=== PATIENT | male | born 1955 | race Caucasian/White ===

== ENCOUNTER 2018-01-31 07:30 | Emergency (ER) | payer MEDICARE, MEDICAID ==
[~2018-01-31] VITALS: Ht 175.3 cm; Wt 65.8 kg
[2018-01-31] MEDS ORDERED: [UNRECOGNIZED DRUG - REMARK] (07:42)
[2018-01-31] MEDS ORDERED: [UNRECOGNIZED DRUG - REMARK] (07:42)
[2018-01-31] MEDS ORDERED: [UNRECOGNIZED DRUG - REMARK] (07:43)
[2018-01-31] MEDS ORDERED: [UNRECOGNIZED DRUG - REMARK] (07:43)
--- NOTE | 2018-01-31 07:53 | NUR ---
PT REFUSED ANY TESTS, DECIDED TO LEAVE AFTER MD IVAN. PT AMBULATED W/O DIFF/TOOK ALL BELONGINGS . PT ELOPED.
== END 2018-01-31 07:57 | disposition left against medical advice (07) ==
LOC: ER 07:30
DX: F31.9 Bipolar disorder, unspecified (principal); F29 Unspecified psychosis not due to a substance or known physiological condition
CPT/HCPCS: 99284; A4663

== ENCOUNTER 2018-02-05 09:48 | Emergency (ER) | payer MEDICARE, MEDICAID ==
[~2018-02-05] VITALS: Ht 175.3 cm; Wt 63.5 kg
[~2018-02-05 09:48] MED LIST: [UNRECOGNIZED DRUG - REMARK]; [UNRECOGNIZED DRUG - REMARK]; [UNRECOGNIZED DRUG - REMARK]; [UNRECOGNIZED DRUG - REMARK]
[2018-02-05 10:13] LABS: BASOPHILS # (AUTO) 0.1 K/uL (0.0-8.0); BASOPHILS % (AUTO) 0.9 % (0.0-2.0); EOSINOPHILS # (AUTO) 0.2 K/uL (0.0-0.7); EOSINOPHILS % (AUTO) 3.2 % (0.0-7.0); HEMATOCRIT 37.6 % (36.7-47.1); HEMOGLOBIN 12.7 g/dL (12.5-16.3); LYMPHOCYTES # (AUTO) 1.5 K/uL (20.0-40.0); LYMPHOCYTES % (AUTO) 23.3 % (20.5-51.5); MEAN CORPUSCULAR HEMOGLOBIN 31.2 uug (23.8-33.4); MEAN CORPUSCULAR HGB CONC 34 g/dL (32.5-36.3); MEAN CORPUSCULAR VOLUME 92.6 fL (73.0-96.2); MONOCYTES # (AUTO) 0.4 K/uL (2.0-10.0); MONOCYTES % (AUTO) 6.6 % (0.0-11.0); NEUTROPHILS # (AUTO) 4.3 K/uL (1.8-8.9); PLATELET COUNT (AUTO) 208 K/uL (152-348); RED BLOOD CELL COUNT(AUTO) 4.07 MIL/uL (4.06-5.63); WHITE BLOOD COUNT (AUTO) 6.5 K/uL (3.6-10.2)
--- NOTE | 2018-02-05 10:19 | NUR ---
[facility] provided for pt per request
[2018-02-05 10:22] LABS: CARBON DIOXIDE 28 mmol/L (21-32); CHLORIDE 108 mmol/L (98-107); CREATININE 0.8 mg/dL (0.6-1.3); GLUCOSE 152 mg/dL (74-106); POTASSIUM 3.5 mmol/L (3.5-5.1); UREA NITROGEN, BLOOD 28 mg/dL (7-18)
[2018-02-05] MEDS ORDERED: MIRT15TA7 PO (10:23)
[2018-02-05] MEDS ORDERED: MELO-105 PO (10:23)
[2018-02-05] MEDS ORDERED: METO50TA16 PO (10:23)
[2018-02-05] MEDS ORDERED: DIVA250T4 PO (10:23)
[2018-02-05] MEDS ORDERED: IBUP-1955 PO (10:23)
[2018-02-05] MEDS ORDERED: BENZ1TAB7 PO (10:23)
[2018-02-05] MEDS ORDERED: DOCU-141 PO (10:23)
[2018-02-05] MEDS ORDERED: ARIP10TA9 PO (10:23)
[2018-02-05] MEDS ORDERED: OLME20TA13 PO (10:23)
[2018-02-05 10:28] LABS: ALANINE AMINOTRANSFERASE 17 U/L (16-63); ALKALINE PHOSPHATASE 66 U/L (50-136); ASPARTATE AMINOTRANSFERASE 17 U/L (15-37); BILIRUBIN,DIRECT 0.1 mg/dL (0.0-0.2); BILIRUBIN,TOTAL 0.3 mg/dL (0.2-1.0); TOTAL PROTEIN, SERUM 6.6 g/dL (6.4-8.2)
[2018-02-05 10:31] LABS: ACETAMINOPHEN < 2.0 ug/mL (10-30)
[2018-02-05 10:32] LABS: ETHANOL < 3 MG/DL (0-0)
[2018-02-05 10:39] LABS: *BILIRUBIN,URIN NEGATIVE (NEGATIVE); *BLOOD, URINE NEGATIVE (NEGATIVE); *CLARITY,URINE CLEAR (CLEAR); *COLOR,URINE YELLOW (YELLOW); *KETONES,URINE NEGATIVE (NEGATIVE); *PROTEIN,URINE NEGATIVE (NEGATIVE); LEUKOCYTE ESTERASE ,URINE NEGATIVE (NEGATIVE); NITRITE, URINE NEGATIVE (NEGATIVE); UGLUCOSE NEGATIVE (NEGATIVE)
[2018-02-05 10:41] LABS: BACTERIA,URINE FEW /HPF (NONE SEEN); RBC,URINE 0-3 /HPF (0-3); SQUAMOUS EPITHELIAL CELL,UR FEW /HPF (NONE SEEN)
[2018-02-05 10:42] LABS: CALCIUM OXALATE CRYSTALS,UR MODERATE /HPF (NONE SEEN)
[2018-02-05 10:49] LABS: *AMPHETAMINE, URINE NEGATIVE (NEGATIVE); *BARBITURATE, URINE NEGATIVE (NEGATIVE); *CANNABINOID, URINE NEGATIVE (NEGATIVE); *COCCAINE, URINE NEGATIVE (NEGATIVE); *OPIATE, URINE POSITIVE (NEGATIVE); *PHENCYCLIDINE SCREEN,URINE NEGATIVE (NEGATIVE)
--- NOTE | 2018-02-05 10:58 | NUR ---
PT IS MEDICALLY CLEARED BY DR DENSON.
--- NOTE | 2018-02-05 11:14 | NUR ---
yair andujar at bedside.
[2018-02-05] MEDS ORDERED: MELOXICAM 7.5 MG TABLET PO SCH (12:15)
[2018-02-05] MEDS ORDERED: METOPROLOL TARTRATE 50 MG TABLET PO SCH (12:15)
[2018-02-05] MEDS ORDERED: VALSARTAN 80 MG TABLET PO ONE (12:15)
[2018-02-05] MEDS ORDERED: DOCUSATE SODIUM 100 MG CAPSULE PO SCH (12:15)
[2018-02-05] MEDS ORDERED: BENZTROPINE MESYLATE 1 MG TABLET PO SCH (12:15)
--- NOTE | 2018-02-05 12:50 | NUR ---
Received report from GALLITO Lewis. Per report pt eloped from ER prior to my arrival. MARIAN is aware.
[2018-02-05] MEDS ORDERED: IBUPROFEN 600 MG TABLET PO SCH (13:00)
== END 2018-02-05 12:50 | disposition left against medical advice (07) ==
LOC: ER 09:48
DX: Z04.6 Encounter for general psychiatric examination, requested by authority (principal); F31.9 Bipolar disorder, unspecified; I10 Essential (primary) hypertension; F17.200 Nicotine dependence, unspecified, uncomplicated; Z88.8 Allergy status to other drugs, medicaments and biological substances
CPT/HCPCS: 36415; 80048; 80076; 80307; 81001; 85025; 87086; 99284; A4663; G0480 ×2; G0481

== ENCOUNTER 2019-01-11 05:13 | Emergency (ER) | payer MEDICAID, MEDICARE ==
[~2019-01-11] VITALS: Ht 175.3 cm; Wt 67.6 kg
[~2019-01-11 05:13] MED LIST changes: +ARIP10TA9 PO; +BENZ1TAB7 PO; +DIVA250T4 PO; +DOCU-141 PO; +IBUP-1955 PO; +MELO-105 PO; +METO50TA16 PO; +MIRT15TA7 PO; +OLME20TA13 PO
--- NOTE | 2019-01-11 05:22 | NUR ---
Pt not in waiting room.
--- NOTE | 2019-01-11 05:45 | NUR ---
PATIENT WAS MSE BY DR CORONEL IN ROOM 03A.
[2019-01-11 06:02] LABS: BASOPHILS # (AUTO) 0.1 K/uL (0.0-8.0); BASOPHILS % (AUTO) 0.8 % (0.0-2.0); EOSINOPHILS # (AUTO) 0.2 K/uL (0.0-0.7); EOSINOPHILS % (AUTO) 2.2 % (0.0-7.0); HEMATOCRIT 37.4 % (36.7-47.1); HEMOGLOBIN 12.8 g/dL (12.5-16.3); LYMPHOCYTES # (AUTO) 1.5 K/uL (20.0-40.0); LYMPHOCYTES % (AUTO) 21.9 % (20.5-51.5); MEAN CORPUSCULAR HEMOGLOBIN 31.1 uug (23.8-33.4); MEAN CORPUSCULAR HGB CONC 34 g/dL (32.5-36.3); MEAN CORPUSCULAR VOLUME 90.5 fL (73.0-96.2); MONOCYTES # (AUTO) 0.5 K/uL (2.0-10.0); MONOCYTES % (AUTO) 7.4 % (0.0-11.0); NEUTROPHILS # (AUTO) 4.6 K/uL (1.8-8.9); NEUTROPHILS % (AUTO) 67.7 % (38.5-71.5); PLATELET COUNT (AUTO) 241 K/uL (152-348); RED BLOOD CELL COUNT(AUTO) 4.13 MIL/uL (4.06-5.63); WHITE BLOOD COUNT (AUTO) 6.8 K/uL (3.6-10.2)
--- NOTE | 2019-01-11 06:06 | NUR ---
Pt provided urine sample, sent to lab.
[2019-01-11 06:07] LABS: CARBON DIOXIDE 31 mmol/L (21-32); CHLORIDE 106 mmol/L (98-107); CREATININE 0.9 mg/dL (0.6-1.3); GLUCOSE 86 mg/dL (74-106); POTASSIUM 3.9 mmol/L (3.5-5.1); UREA NITROGEN, BLOOD 26 mg/dL (7-18)
[2019-01-11 06:12] LABS: ALANINE AMINOTRANSFERASE 9 U/L (16-63); ALKALINE PHOSPHATASE 67 U/L (50-136); ASPARTATE AMINOTRANSFERASE 12 U/L (15-37); BILIRUBIN,DIRECT 0.1 mg/dL (0.0-0.2); BILIRUBIN,TOTAL 0.3 mg/dL (0.2-1.0)
[2019-01-11 06:15] LABS: ACETAMINOPHEN < 2.0 ug/mL (10-30)
[2019-01-11 06:28] LABS: ETHANOL 4 MG/DL (0-0)
[2019-01-11 06:44] LABS: *AMPHETAMINE, URINE NEGATIVE (NEGATIVE); *BARBITURATE, URINE NEGATIVE (NEGATIVE); *BILIRUBIN,URIN NEGATIVE (NEGATIVE); *BLOOD, URINE NEGATIVE (NEGATIVE); *CANNABINOID, URINE NEGATIVE (NEGATIVE); *CLARITY,URINE CLEAR (CLEAR); *COCCAINE, URINE NEGATIVE (NEGATIVE); *COLOR,URINE YELLOW (YELLOW); *KETONES,URINE NEGATIVE (NEGATIVE); *OPIATE, URINE NEGATIVE (NEGATIVE); *PHENCYCLIDINE SCREEN,URINE NEGATIVE (NEGATIVE); *UROBILINOGEN,URINE 0.2 E.U./dl (NORMAL); LEUKOCYTE ESTERASE ,URINE NEGATIVE (NEGATIVE); NITRITE, URINE NEGATIVE (NEGATIVE); UGLUCOSE NEGATIVE (NEGATIVE)
--- NOTE | 2019-01-11 08:03 | NUR ---
PT EATING HOSPITAL BF WITH GOOD APETITE.
--- NOTE | 2019-01-11 08:11 | NUR ---
CALLED ANGY FOR PSYCH EVAL.LEFT A MESSAGE.
--- NOTE | 2019-01-11 09:19 | NUR ---
ANGY AGOSTO HERE FOR PSYCH EVAL.
--- NOTE | 2019-01-11 09:45 | NUR ---
Patient discharged to home in stable conditon. Written and verbal after care instructions given. Patient verbalizes understanding of instructions.PT WALKS IN STEADY GAIT. TAP CAR PROVIDED BUS TRIP TO GO BACK TO HIS RESIDENCE. PT DENEIS ANY COMPLAIN AT THIS POINT.
[2019-01-11 09:47] VITALS: BP 131/77
== END 2019-01-11 09:48 | disposition home or self-care (01) ==
LOC: ER 05:16
DX: F31.9 Bipolar disorder, unspecified (principal); F20.9 Schizophrenia, unspecified; F17.210 Nicotine dependence, cigarettes, uncomplicated; Z88.8 Allergy status to other drugs, medicaments and biological substances; Z79.1 Long term (current) use of non-steroidal anti-inflammatories (NSAID); Z79.899 Other long term (current) drug therapy
CPT/HCPCS: 36415; 80048; 80076; 80307; 81001; 85025; 99284; G0480 ×2; G0481; A4663

== ENCOUNTER 2019-01-15 12:50 | Inpatient (IN) | payer MEDICARE ==
[~2019-01-15] VITALS: Ht 175.3 cm; Wt 80.3 kg
[2019-01-15 13:27] LABS: *BILIRUBIN,URIN 1+ (NEGATIVE); *BLOOD, URINE NEGATIVE (NEGATIVE); *CLARITY,URINE CLEAR (CLEAR); *COLOR,URINE YELLOW (YELLOW); *KETONES,URINE TRACE (NEGATIVE); *UROBILINOGEN,URINE 0.2 E.U./dl (NORMAL); BASOPHILS # (AUTO) 0.1 K/uL (0.0-8.0); BASOPHILS % (AUTO) 0.9 % (0.0-2.0); EOSINOPHILS # (AUTO) 0.3 K/uL (0.0-0.7); EOSINOPHILS % (AUTO) 3.7 % (0.0-7.0); HEMATOCRIT 41.8 % (36.7-47.1); HEMOGLOBIN 13.7 g/dL (12.5-16.3); LEUKOCYTE ESTERASE ,URINE NEGATIVE (NEGATIVE); LYMPHOCYTES # (AUTO) 1.6 K/uL (20.0-40.0); LYMPHOCYTES % (AUTO) 22.1 % (20.5-51.5); MEAN CORPUSCULAR HEMOGLOBIN 30.7 uug (23.8-33.4); MEAN CORPUSCULAR HGB CONC 33 g/dL (32.5-36.3); MEAN CORPUSCULAR VOLUME 94.1 fL (73.0-96.2); MONOCYTES # (AUTO) 0.5 K/uL (2.0-10.0); MONOCYTES % (AUTO) 7.1 % (0.0-11.0); NEUTROPHILS # (AUTO) 4.8 K/uL (1.8-8.9); NEUTROPHILS % (AUTO) 66.2 % (38.5-71.5); NITRITE, URINE NEGATIVE (NEGATIVE); PH,URINE 5.5 (5.0-8.0); PLATELET COUNT (AUTO) 249 K/uL (152-348); RED BLOOD CELL COUNT(AUTO) 4.45 MIL/uL (4.06-5.63); UGLUCOSE NEGATIVE (NEGATIVE); WHITE BLOOD COUNT (AUTO) 7.3 K/uL (3.6-10.2)
[2019-01-15 13:33] LABS: BACTERIA,URINE FEW /HPF (NONE SEEN); RBC,URINE NONE SEEN /HPF (0-3); SQUAMOUS EPITHELIAL CELL,UR FEW /HPF (NONE SEEN); WBC,URINE NONE SEEN /HPF (0-3)
[2019-01-15 13:34] LABS: *AMPHETAMINE, URINE NEGATIVE (NEGATIVE); *BARBITURATE, URINE NEGATIVE (NEGATIVE); *CANNABINOID, URINE NEGATIVE (NEGATIVE); *COCCAINE, URINE NEGATIVE (NEGATIVE); *OPIATE, URINE NEGATIVE (NEGATIVE); *PHENCYCLIDINE SCREEN,URINE NEGATIVE (NEGATIVE); MUCUS,URINE FEW /LPF (0-FEW)
[2019-01-15 13:35] LABS: CARBON DIOXIDE 30 mmol/L (21-32); CHLORIDE 106 mmol/L (98-107); CREATININE 0.8 mg/dL (0.6-1.3); GLUCOSE 97 mg/dL (74-106); POTASSIUM 3.9 mmol/L (3.5-5.1); UREA NITROGEN, BLOOD 27 mg/dL (7-18)
[2019-01-15 13:39] LABS: ETHANOL < 3 MG/DL (0-0)
[2019-01-15 13:41] LABS: ACETAMINOPHEN < 2.0 ug/mL (10-30); ALANINE AMINOTRANSFERASE 9 U/L (16-63); ALKALINE PHOSPHATASE 71 U/L (50-136); ASPARTATE AMINOTRANSFERASE 12 U/L (15-37); BILIRUBIN,DIRECT 0.1 mg/dL (0.0-0.2); BILIRUBIN,TOTAL 0.3 mg/dL (0.2-1.0); TOTAL PROTEIN, SERUM 7.8 g/dL (6.4-8.2); VALPROIC ACID 12 ug/mL (50-100)
[2019-01-15 20:00] VITALS: BP 118/61
[2019-01-15] MEDS ORDERED: BLOOD SUGAR DIAGNOSTIC 1 EACH STRIP VI ONE (20:00)
[2019-01-15] MEDS ORDERED: TEMAZEPAM 7.5 MG CAPSULE PO PRN (20:00)
[2019-01-15] MEDS ORDERED: MAG HYDROX/AL HYDROX/SIMETH 30 ML LIQUID UDC PO PRN (20:00)
[2019-01-15] MEDS ORDERED: ACETAMINOPHEN 325 MG TABLET PO PRN (20:00)
[2019-01-15] MEDS ORDERED: MAGNESIUM HYDROXIDE 30 ML LIQUID UDC PO PRN (20:00)
[2019-01-15] MEDS ORDERED: NICOTINE 21 MG/24HR PATCH TD SCH (20:45)
[2019-01-16 07:30] VITALS: BP 144/78
[2019-01-16] MEDS: BENZTROPINE MESYLATE 1 MG TABLET PO SCH ×2 (09:44→17:19)
[2019-01-16] MEDS: DIVALPROEX 250 MG TABLET.DR PO SCH ×3 (09:44→17:20)
[2019-01-16] MEDS: NICOTINE 21 MG/24HR PATCH TD SCH (09:44)
[2019-01-16] MEDS: ARIPIPRAZOLE 10 MG TABLET PO SCH (09:44)
[2019-01-16] MEDS: IBUPROFEN 600 MG TABLET PO PRN (15:38)
[2019-01-16 16:00] VITALS: BP 136/88
[2019-01-16] MEDS: METOPROLOL TARTRATE 50 MG TABLET PO SCH (17:20)
[2019-01-16 20:37] VITALS: BP 146/76
[2019-01-16] MEDS: MIRTAZAPINE 15 MG TABLET PO SCH (20:50)
[2019-01-17] MEDS: LORAZEPAM 0.5 MG TABLET PO PRN (08:23)
[2019-01-17] MEDS: DOCUSATE SODIUM 100 MG CAPSULE PO SCH (08:57)
[2019-01-17] MEDS: BENZTROPINE MESYLATE 1 MG TABLET PO SCH ×2 (08:57→16:51)
[2019-01-17] MEDS: LOSARTAN POTASSIUM 50 MG TABLET PO SCH (08:57)
[2019-01-17] MEDS: ARIPIPRAZOLE 10 MG TABLET PO SCH (08:57)
[2019-01-17] MEDS: DIVALPROEX 250 MG TABLET.DR PO SCH ×3 (08:57→16:51)
[2019-01-17] MEDS: METOPROLOL TARTRATE 50 MG TABLET PO SCH ×2 (08:57→16:51)
[2019-01-17] MEDS: MELOXICAM 7.5 MG TABLET PO SCH (08:58)
[2019-01-17] MEDS: NICOTINE 21 MG/24HR PATCH TD SCH (08:58)
[2019-01-17] MEDS: MIRTAZAPINE 15 MG TABLET PO SCH (20:09)
[2019-01-18] MEDS: LORAZEPAM 0.5 MG TABLET PO PRN ×2 (04:50→12:33)
[2019-01-18] MEDS: ARIPIPRAZOLE 10 MG TABLET PO SCH (08:40)
[2019-01-18] MEDS: DIVALPROEX 250 MG TABLET.DR PO SCH ×3 (08:40→16:11)
[2019-01-18] MEDS: MELOXICAM 7.5 MG TABLET PO SCH (08:40)
[2019-01-18] MEDS: LOSARTAN POTASSIUM 50 MG TABLET PO SCH (08:40)
[2019-01-18] MEDS: DOCUSATE SODIUM 100 MG CAPSULE PO SCH (08:40)
[2019-01-18] MEDS: BENZTROPINE MESYLATE 1 MG TABLET PO SCH ×2 (08:40→16:11)
[2019-01-18] MEDS: METOPROLOL TARTRATE 50 MG TABLET PO SCH ×2 (08:41→16:12)
[2019-01-18] MEDS: NICOTINE 21 MG/24HR PATCH TD SCH (08:41)
[2019-01-18 16:41] VITALS: BP 160/93
[2019-01-18] MEDS: MIRTAZAPINE 15 MG TABLET PO SCH (20:13)
[2019-01-18] MEDS: IBUPROFEN 600 MG TABLET PO PRN (20:13)
[2019-01-19 07:30] VITALS: BP 157/109
[2019-01-19] MEDS: LORAZEPAM 0.5 MG TABLET PO PRN ×2 (08:56→14:14)
[2019-01-19] MEDS: NICOTINE 21 MG/24HR PATCH TD SCH (09:00)
[2019-01-19] MEDS: ARIPIPRAZOLE 10 MG TABLET PO SCH (09:04)
[2019-01-19] MEDS: IBUPROFEN 600 MG TABLET PO PRN ×2 (09:04→14:14)
[2019-01-19] MEDS: MELOXICAM 7.5 MG TABLET PO SCH (09:04)
[2019-01-19] MEDS: BENZTROPINE MESYLATE 1 MG TABLET PO SCH ×2 (09:04→16:36)
[2019-01-19] MEDS: DOCUSATE SODIUM 100 MG CAPSULE PO SCH (09:04)
[2019-01-19] MEDS: DIVALPROEX 250 MG TABLET.DR PO SCH ×3 (09:04→16:36)
[2019-01-19] MEDS: LOSARTAN POTASSIUM 50 MG TABLET PO SCH (09:07)
[2019-01-19] MEDS: METOPROLOL TARTRATE 50 MG TABLET PO SCH ×2 (09:08→16:37)
[2019-01-19] MEDS: MIRTAZAPINE 15 MG TABLET PO SCH (20:05)
[2019-01-20] MEDS: DOCUSATE SODIUM 100 MG CAPSULE PO SCH (08:36)
[2019-01-20] MEDS: MELOXICAM 7.5 MG TABLET PO SCH (08:36)
[2019-01-20] MEDS: DIVALPROEX 250 MG TABLET.DR PO SCH ×3 (08:36→16:54)
[2019-01-20] MEDS: ARIPIPRAZOLE 10 MG TABLET PO SCH (08:36)
[2019-01-20] MEDS: LORAZEPAM 0.5 MG TABLET PO PRN ×2 (08:36→14:28)
[2019-01-20] MEDS: LOSARTAN POTASSIUM 50 MG TABLET PO SCH (08:36)
[2019-01-20] MEDS: BENZTROPINE MESYLATE 1 MG TABLET PO SCH ×2 (08:37→16:54)
[2019-01-20] MEDS: NICOTINE 21 MG/24HR PATCH TD SCH (08:37)
[2019-01-20] MEDS: METOPROLOL TARTRATE 50 MG TABLET PO SCH ×2 (08:37→16:54)
[2019-01-20] MEDS: IBUPROFEN 600 MG TABLET PO PRN (14:28)
[2019-01-20 15:19] VITALS: BP 113/53
[2019-01-20 20:12] VITALS: BP 147/82
[2019-01-20] MEDS: MIRTAZAPINE 15 MG TABLET PO SCH (20:34)
[2019-01-21 07:30] VITALS: BP 178/88
[2019-01-21] MEDS: DOCUSATE SODIUM 100 MG CAPSULE PO SCH (08:10)
[2019-01-21] MEDS: MELOXICAM 7.5 MG TABLET PO SCH (08:10)
[2019-01-21] MEDS: DIVALPROEX 250 MG TABLET.DR PO SCH (08:10)
[2019-01-21] MEDS: ARIPIPRAZOLE 10 MG TABLET PO SCH (08:10)
[2019-01-21] MEDS: BENZTROPINE MESYLATE 1 MG TABLET PO SCH (08:10)
[2019-01-21] MEDS: LOSARTAN POTASSIUM 50 MG TABLET PO SCH (08:11)
[2019-01-21 08:12] VITALS: BP 178/88
[2019-01-21] MEDS: NICOTINE 21 MG/24HR PATCH TD SCH ×2 (08:12→08:16)
[2019-01-21] MEDS: METOPROLOL TARTRATE 50 MG TABLET PO SCH (08:12)
== END 2019-01-21 10:15 | DRG 885 ==
LOC: ER 12:50 → GPS 19:46
PROVIDERS: ADMIT Psychiatry & Neurology Psychiatry
DX: F31.64 Bipolar disorder, current episode mixed, severe, with psychotic features (principal); E78.5 Hyperlipidemia, unspecified; C44.90 Unspecified malignant neoplasm of skin, unspecified; Z79.899 Other long term (current) drug therapy; M19.90 Unspecified osteoarthritis, unspecified site; I10 Essential (primary) hypertension; F17.210 Nicotine dependence, cigarettes, uncomplicated
CPT/HCPCS: 36415; 80164; 80307; 85025; A4663; G0480; G0480-TC; J3490